=== PATIENT | female | born 1965 | race Caucasian/White ===

== ENCOUNTER 2021-04-11 19:13 | Emergency (ER) | payer OTHER ==
[~2021-04-11] VITALS: Ht 180.3 cm; Wt 57.0 kg
[2021-04-11 20:39] VITALS: BP 128/65
--- NOTE | 2021-04-12 09:35 | NUR ---
MONOCLONAL ANTIBODY CRITERIA REVIEWED FOR THE ORDER RECEIVED, PATIENT DOES NOT MEET CRITERIA TO RECEIVE REGENERON.
== END 2021-04-11 20:47 | disposition home or self-care (01) | DRG 179 ==
LOC: ED 19:13
DX: U07.1 COVID-19 (principal); F17.210 Nicotine dependence, cigarettes, uncomplicated